=== PATIENT | female | born 1965 | race Caucasian/White ===

== ENCOUNTER → 2024-09-08 | Outpatient (CLI) | payer BC ==
--- NOTE | 2024-09-08 22:38 | CT ---
EXAMINATION TYPE: CT abdomen pelvis wo con DATE OF EXAM: 09/08/2024 COMPARISON: None INDICATION: Dysuria x 2 weeks DLP: 1007.4 mGycm, Automated exposure control for dose reduction was used. CONTRAST: 0 mL of Isovue 300. Study performed with Oral Contrast TECHNIQUE: Axial images were obtained from above the diaphragm to the pubic rami in the axial plane a t 5 mm thick sections. Reconstructed images are reviewed on the computer in the coronal plane. FINDINGS: Limited CT sections are obtained the lung bases. The lung bases are clear. Coronary artery calcific ation is evident. CT ABDOMEN: Liver: There is a 1.4 cm hypodense area within the inferior medial right tip of the liver extends to the cortex. This appears atypical for a cyst. Additional workup could be performed with ultrasound. M RI with contrast may be diagnostic. Spleen: Normal Pancreas: Normal Adrenal glands: The adrenal glands are normal. Gallbladder: Normal Kidneys: No masses are evident. No hydronephrosis is present. No cysts are present. No renal stone s evident Aorta: Vascular calcification is within the aorta. Inferior vena cava: Normal. CT PELVIS: Loops of bowel within the abdomen and pelvis are normal. There are loops of bowel which are incom pletely distended or lack oral contrast limiting their evaluation. Appendix: Normal as visualized. Urinary bladder: Normal. Genitourinary structures: Prostate appears normal Osseous structures: No suspicious lytic or sclerotic lesions. Degenerative disc changes are within th e L5-S1 level. Degenerative disc changes are also noted at L2-3 and L3-4 with narrowing of the L4-5 d isc space noted. Some vacuum disc phenomenon is in the lower thoracic spine. IMPRESSION: 1. Hypodensity extending towards the cortical margin of the inferior right tip of the liver. Additio nal workup with ultrasound is recommended. Differential could include a hemangioma. MRI may be diagno stic. [facility], Workstation: [id number], 09/08/2024 10:35 PM
== END ==
LOC: RADCTMAIN 14:26
PROVIDERS: ATTEND Family Medicine
DX: R10.13 Epigastric pain (principal)
CPT/HCPCS: 74176

== ENCOUNTER 2024-10-02 12:46 | Day surgery (SDC) | payer BC ==
[2024-09-28 13:58] VITALS: BMI 32.1
[2024-10-02 13:00] VITALS: PULSE 69; RESP 14; TEMP 97.1
[2024-10-02] MEDS: IV FLUID CONTINUATION 1,000 ML IV ONE (13:02)
[2024-10-02] MEDS: LACTATED RINGERS 1,000 ML IV SCH (13:20)
[2024-10-02] MEDS ORDERED: LIDOCAINE 1% INJ 10MG/ML (20 ML MDV) ONE (13:43)
[2024-10-02] MEDS ORDERED: PROPOFOL 10 MG/ML 20 ML VIAL IV ONE (13:43)
--- NOTE | 2024-10-02 14:03 | P.GSHP ---
History of Present Illness H&P Date: 10/02/24 Chief Complaint: Screening colonoscopy This a 59-year-old female presents a for screening colonoscopy. Patient denies any significant GI complaints. Past Medical History Past Medical History: GERD/Reflux, Hyperlipidemia, Hypertension History of Any Multi-Drug Resistant Organisms: None Reported Past Surgical History: Hysterectomy Past Anesthesia/Blood Transfusion Reactions: No Reported Reaction Additional Past Anesthesia/Blood Transfusion Reaction / Comment(s): no blood transfusion Smoking Status: Current some day smoker, Vaper - Past Family History Mother Family Medical History: Cancer Additional Family Medical History / Comment(s): breast Medications and Allergies Home Medications Medication Instructions Recorded Confirmed Type Atorvastatin [Lipitor] 10 mg PO HS 09/28/24 10/02/24 History DULoxetine HCL [Cymbalta] 60 mg PO DAILY 09/28/24 10/02/24 History HYDROcodone/APAP 7.5-325MG [[place] 1 tab PO Q6HR PRN 09/28/24 10/02/24 History 7.5-325] Loratadine [Claritin] 10 mg PO DAILY 09/28/24 10/02/24 History Omeprazole 40 mg PO BID 09/28/24 10/02/24 History Pregabalin [Lyrica] 150 mg PO TID 09/28/24 10/02/24 History atenoloL [Tenormin] 1 tab PO DAILY 09/28/24 10/02/24 History Acyclovir [Zovirax] 400 mg PO DIRECTED 10/02/24 10/02/24 History Allergies Allergy/AdvReac Type Severity Reaction Status Date / Time No Known Allergies Allergy Verified 10/02/24 12:55 Surgical - Exam Vital Signs Temp Pulse Resp BP Pulse Ox 97.1 F L 69 14 128/81 95 10/02/24 12:59 10/02/24 12:59 10/02/24 12:59 10/02/24 12:59 10/02/24 12:59 - General well developed, well nourished, no distress - Eyes PERRL - ENT normal pinna - Neck no masses - Respiratory normal expansion - Cardiovascular Rhythm: regular - Abdomen Abdomen: soft, non tender Assessment and Plan Assessment: Will perform screening colonoscopy
--- NOTE | 2024-10-02 14:05 | P.OP ---
Date of Procedure: 10/02/24 Preoperative Diagnosis: Screening colonoscopy Postoperative Diagnosis: Diverticulosis Procedure(s) Performed: Colonoscopy Anesthesia: MAC Surgeon: Ricardo Roque Pathology: none sent Condition: stable Disposition: PACU Description of Procedure: The patient was placed on the endoscopy table in the lateral position. She received IV sedation. Digital rectal exams performed which revealed no abnormalities. The flexible colonoscope was then placed patient anus and passed throughout the entire colon. The ileocecal valve was not visualized secondary to poor bowel prep. There is large amount liquid stool right colon which limited the view of the mucosa. The visualized right colon appeared normal. The transverse colon a few scattered diverticuli. In the descending sigmoid colon there is more diverticuli seen. The scope was brought back to the rectum this appeared normal. Scope withdrawn for the patient.
[2024-10-02 14:22] VITALS: BP 118/72
== END 2024-10-02 14:43 | disposition home or self-care (01) ==
LOC: ORWHC2ENDO 12:46
PROVIDERS: ATTEND Surgery
DX: Z12.11 Encounter for screening for malignant neoplasm of colon (principal); K57.30 Diverticulosis of large intestine without perforation or abscess without bleeding; K21.9 Gastro-esophageal reflux disease without esophagitis; I10 Essential (primary) hypertension; E78.5 Hyperlipidemia, unspecified; F17.290 Nicotine dependence, other tobacco product, uncomplicated; M19.90 Unspecified osteoarthritis, unspecified site; Z90.710 Acquired absence of both cervix and uterus; Z79.899 Other long term (current) drug therapy